=== PATIENT | female | born 1985 | race Caucasian/White ===

== ENCOUNTER 2016-12-22 12:17 | Emergency (ER) | payer BC ==
[2016-12-22 13:34] VITALS: BP 131/77
--- NOTE | 2016-12-22 13:52 | UC ---
Back Pain HPI - HPI Summary HPI Summary: pt presents with c/o low back pain, stiffness, that rdiates interrmittently lauren bilateral buttocks and posterior lower extremities. pt reports that pain and stiffness began gradually and has worsened over the last 2 dasy. Pt has an 1 8 noth old child who she picks up frequently and watches every day. - History of Current Complaint Chief Complaint: UCBackPain Stated Complaint: BACK PAIN Time Seen by Provider: 12/22/16 13:39 Hx Obtained From: Patient Hx Last Menstrual Period: 12/03/16 ?: No Onset/Duration: Gradual Onset, Lasting Days Timing: Constant Severity Initially: Mild Severity Currently: Mild Character: Dull, Aching, Spasmodic, Stiffness Aggravating: Movement Alleviating: Rest, Position Associated Signs And Symptoms: Positive: Negative - Allergies/Home Medications Allergies/Adverse Reactions: Allergies Allergy/AdvReac Type Severity Reaction Status Date / Time No Known Allergies Allergy Verified 12/22/16 13:34 PMH/Surg Hx/FS Hx/Imm Hx Previously Healthy: Yes - Surgical History Surgical History: None - Family History Known Family History: Positive: Other - positive [facility] for myalgia - Social History Lives: With Family Alcohol Use: Rare Substance Use Type: None Smoking Status (MU): Never Smoked Tobacco Review of Systems Constitutional: Negative Skin: Negative Eyes: Negative ENT: Negative Respiratory: Negative Cardiovascular: Negative Gastrointestinal: Negative Genitourinary: Negative Motor: Decreased ROM - low back Neurovascular: Negative Musculoskeletal: Decreased ROM - low back, Myalgia Neurological: Negative Psychological: Negative All Other Systems Reviewed And Are Negative: Yes Physical Exam Triage Information Reviewed: Yes Appearance: Well-Appearing Vital Signs: Initial Vital Signs Temp 98.2 F 12/22/16 13:30 Pulse 87 12/22/16 13:30 Resp 16 12/22/16 13:30 BP 131/77 12/22/16 13:30 Pulse Ox 100 12/22/16 13:30 Vital Signs Reviewed: Yes Eye Exam: Normal Neck exam: Normal Respiratory Exam: Normal Cardiovascular Exam: Normal Musculoskeletal Exam: Other Musculoskeletal: Positive: ROM Limited @ - low back Neurological Exam: Normal Psychological Exam: Normal Skin Exam: Normal Back Pain Course/Dx - Differential Dx/Diagnosis Differential Diagnosis/HQI/PQRI: Strain Provider Diagnoses: low back strain. sciatica-? muscle spasm low back Discharge - Discharge Plan Condition: Stable Disposition: HOME Prescriptions: Cyclobenzaprine TAB* [Flexeril 10 MG TAB*] 10 mg PO Q8H PRN #21 tab PRN Reason: Pain Ibuprofen TAB* [Motrin TAB* 600 MG] 600 mg PO Q8H PRN #30 tab PRN Reason: Pain Patient Education Materials: Low Back Strain (ED), Lower Back Exercises (ED) Referrals: [facility] [place] PH[facility]IAN REFERRAL [Outside] Additional Instructions: Please follow up with your PCP or return to clinic. If you do not have a PCP please use the physician referral number we have provided.
== END 2016-12-22 14:01 | disposition home or self-care (01) ==
LOC: UCCORT 12:17
DX: S39.012A Strain of muscle, fascia and tendon of lower back, initial encounter (principal); X58.XXXA Exposure to other specified factors, initial encounter; Y93.9 Activity, unspecified; Y99.9 Unspecified external cause status
CPT/HCPCS: 81003; 99202; G0463

== ENCOUNTER 2019-09-28 08:30 | Emergency (ER) | payer SELFPAY ==
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
[2019-09-28] MEDS ORDERED: Ibuprofen TAB* 600 MG PO ONE (10:08)
[2019-09-28] MEDS ORDERED: Tetan/Diph/Pertus SYR(Tdap)* 0.5 ML SYR(BOOSTRIX) use SYR contains LATEX IM ONE (10:09)
[2019-09-28] MEDS ORDERED: Metoclopramide TAB* 10 MG PO ONE (10:12)
[2019-09-28] MEDS ORDERED: Meclizine TAB* 12.5 MG PO ONE (11:47)
[2019-09-28 12:17] VITALS: BP 115/71
== END 2019-09-28 12:17 | disposition home or self-care (01) ==
LOC: ED 08:30
DX: S01.01XA Laceration without foreign body of scalp, initial encounter (principal); S06.0X9A Concussion with loss of consciousness of unspecified duration, initial encounter; Z23 Encounter for immunization; V03.90XA Pedestrian on foot injured in collision with car, pick-up truck or van, unspecified whether traffic or nontraffic accident, initial encounter; Y92.410 Unspecified street and highway as the place of occurrence of the external cause
CPT/HCPCS: 12001; 70450; 72125; 90471; 90715; 99283; A9270-GY